=== PATIENT | male | born 1980 | race Caucasian/White ===

== ENCOUNTER → 2016-11-07 10:49 | Day surgery (SDC) | payer OTHER ==
--- NOTE | 2016-11-03 21:04 | HP ---
PREOPERATIVE HISTORY AND PHYSICAL: DATE OF ADMISSION: 11/07/16 PROVIDER: Nader Martinez MD CHIEF COMPLAINT: Left ankle pain. HISTORY OF PRESENT ILLNESS: Mejia is a 36-year-old male followed by Dr. Martinez for left foot calcaneus fracture. He underwent open reduction internal fixation previously. He continues to have some persistent discomfort along the lateral aspect of his hindfoot and has persistent swelling at the end of the day. He denies any new injury. He denies paresthesias or numbness. He is interested in surgical intervention for hardware removal. PAST MEDICAL HISTORY: None. PAST SURGICAL HISTORY: Open reduction internal fixation of the left calcaneus and lymph node excision. He reports no complications of the anesthesia with any of these procedures. CURRENT MEDICATIONS: None. ALLERGIES: No known drug allergies. SOCIAL HISTORY: The patient lives with his . He is employed as a service technician. He does smoke. He consumes alcohol occasionally. REVIEW OF SYSTEMS: Constitutional: Negative for recent hospitalizations, fevers, chills, night sweats, or weight loss. Head: Negative for headaches, lightheadedness, or balance problems. Cardiovascular: Negative for chest or arm pain with exertion, history of heart attack, heart murmur, heart palpitations, high blood pressure, embolism, or deep vein thrombosis. Respiratory: Negative for chronic cough, shortness of breath with exertion, asthma, or COPD. Gastrointestinal: Negative for heartburn, nausea, vomiting, diarrhea, constipation, or GERD. Genitourinary: Negative for nighttime urination, frequency of urination, urinary tract infection, or kidney problems. Musculoskeletal: Negative for chronic back pain. Positive for calcaneus fracture. Skin: Negative for rashes, lesions, lumps, or sores. Neurologic: Negative for seizure, stroke, epilepsy, depression, or anxiety. Endocrine: Negative for diabetes or thyroid problems. Hematology: Negative for easy bleeding, bruising, or anemia. PHYSICAL EXAMINATION GENERAL: He is a well-developed, well-nourished pleasant male, in no acute distress at rest. He is alert and oriented x3 with appropriate mood and affect. VITAL SIGNS: The patient is 5 feet 7 inches, 145 pounds. Blood pressure 130/90 , pulse of 80. HEENT: Normocephalic, atraumatic. Hearing and vision are grossly intact. NECK: His trachea is midline. RESPIRATORY: Lungs clear to auscultation bilaterally. No wheezes, rales, or rhonchi. CARDIOVASCULAR: Regular rate and rhythm. No murmurs, rubs, or gallops. Normal S1, S2. ABDOMEN: Soft, nondistended, nontender. Normal bowel sounds. EXTREMITIES: Exam of the left lower extremity, incision over the lateral aspect of the foot is well healed. There is mild edema throughout the ankle and thickening of the calcaneus, but no ecchymosis or gross deformities. He has full dorsiflexion and plantarflexion of the ankle. He has limited inversion and eversion. Sensation to light touch is intact. He has a 2+ dorsalis pedis pulse. IMPRESSION: Painful hardware in the left ankle. PLAN: The patient is to undergo hardware removal of left calcaneus by Dr. Martinez on 11/07/16. The risks, benefits, and postoperative course were discussed with the patient at length and he would like to proceed. A prescription for oxycodone was sent to the the patient's pharmacy for postoperative pain. All of his questions were answered to his full satisfaction. We will follow up with the patient in the postoperative phase. CLAYTON RIVAS [id number]/[facility] #: [id number] ASHLYN
[~2016-11-07 10:49] MED LIST: Buffered Lidocaine 1% SYR 3ML* 3 ML/SYR SYRINGE INTRADERM ONE; Buffered Lidocaine 1% SYR 3ML* 3 ML/SYR SYRINGE ONE; Bupivacaine 0.5% SDV PF* 30 ML VIAL ONE; Cisatracurium* 2 MG/ML MDV 10 ML ONE; Dexamethasone IV* 4 MG/ML 1 ML (4 MG) ONE; Famotidine IV* 10 MG/ML 2 ML (20 mg) IV ONE; Famotidine IV* 10 MG/ML 2 ML (20 mg) ONE; HYDROmorphone INJ* 1 MG/ML CARPUJECT SYRINGE IV PRN; KETAMINE HCL* 50 MG/ML 10 ML VIAL ONE; Ketorolac INJ* 30 MG/ML 1 ML VIAL ONE; Lidocaine 2% MPF* 2 ML VIAL ONE; Metoclopramide TAB* 10 MG ONE; Metoclopramide TAB* 10 MG PO ONE; Midazolam* 1 MG/ML 5 ML VIAL (5 MG) ONE; Ondansetron INJ* 2 MG/ML VIAL IV PRN; Ondansetron INJ* 2 MG/ML VIAL ONE; Propofol* 10 MG/ML 20 ML BTL IV PUSH ONE; ceFAZolin 2 GM PREMIX (*) 2 GM/50 ML BAG IVPB ONE; fentaNYL* 50 MCG/ML 2 ML VIAL (100 MCG VIAL) IV PRN; fentaNYL* 50 MCG/ML 2 ML VIAL (100 MCG VIAL) ONE; oxyCODONE/Acetamin 5/325 MG* TAB ONE; oxyCODONE/Acetamin 5/325 MG* TAB PO PRN
[2016-11-07 16:40] VITALS: BP 122/78
--- NOTE | 2016-11-07 21:17 | OP ---
DATE OF OPERATION: 11/07/16 - [facility] DATE OF : 76 SURGEON: Nader Martinez MD EDUCATIONAL COORDINATOR: ADRIÁN Alfonso. ANESTHESIOLOGIST: Tomer Resendez MD ANESTHESIA: General PRE-OP DIAGNOSIS: Painful calcaneal plate, left foot. POST-OP DIAGNOSIS: Painful calcaneal plate, left foot. OPERATIVE PROCEDURE: Removal of plate, left calcaneus. DESCRIPTION OF PROCEDURE: The patient was taken to the operating room where a lateral positioning was used. We opened up longitudinally over the lateral hind foot preserving the peroneal tendons distally. The flap was raised off the lateral aspect of the plate with the small fragments. Screw taxi truck driver was used to remove the screws. Plate was then lifted away from the calcaneus. We irrigated thoroughly closing with Vicryl sutures interrupted nylon for the skin and compression dressing, plaster splint were applied. [id number] #: [id number] MTDD
== END | disposition home or self-care (01) ==
LOC: OR 10:49
PROVIDERS: ATTEND Orthopaedic Surgery
DX: T84.84XA Pain due to internal orthopedic prosthetic devices, implants and grafts, initial encounter (principal); Y83.1 Surgical operation with implant of artificial internal device as the cause of abnormal reaction of the patient, or of later complication, without mention of misadventure at the time of the procedure; F17.200 Nicotine dependence, unspecified, uncomplicated
CPT/HCPCS: 88300; A9270-GY; J0690; J1100; J1885; J2250; J2405; J2704; J3010